=== PATIENT | male | born 1985 | race Caucasian/White ===

== ENCOUNTER 2017-01-01 09:47 | Emergency (ER) | payer SELFPAY ==
[~2017-01-01] VITALS: Ht 180.3 cm; Wt 88.0 kg
[2017-01-01] MEDS ORDERED: CIPROFLOXACN750 MG PO (11:44)
[2017-01-01] MEDS ORDERED: LORTAB 5-325 MG1 TAB PO (11:44)
[2017-01-01 11:54] VITALS: BP 136/72
== END 2017-01-01 12:06 | disposition home or self-care (01) | DRG 914 ==
LOC: ED 09:47
PROC: 0HQLXZZ Repair Left Lower Leg Skin, External Approach (ICD-10-PCS; principal; 2017-01-01)
DX: S81.822A Laceration with foreign body, left lower leg, initial encounter (principal); F17.220 Nicotine dependence, chewing tobacco, uncomplicated; W45.8XXA Other foreign body or object entering through skin, initial encounter; W22.8XXA Striking against or struck by other objects, initial encounter; Y93.H9 Activity, other involving exterior property and land maintenance, building and construction; Y92.007 Garden or yard of unspecified non-institutional (private) residence as the place of occurrence of the external cause

== ENCOUNTER 2017-01-10 20:29 | Emergency (ER) | payer SELFPAY ==
[~2017-01-10] VITALS: Ht 180.3 cm; Wt 80.0 kg
[~2017-01-10 20:29] MED LIST: CIPROFLOXACN750 MG PO; LORTAB 5-325 MG1 TAB PO
[2017-01-10 21:33] VITALS: BP 142/88
== END 2017-01-10 21:44 | disposition home or self-care (01) | DRG 950 ==
LOC: ED 20:29
DX: S81.822D Laceration with foreign body, left lower leg, subsequent encounter (principal); Z48.02 Encounter for removal of sutures